=== PATIENT | male | born 1970 | race Caucasian/White ===

== ENCOUNTER 2024-03-08 17:00 | Outpatient (RCR) | payer OTHER, SELFPAY | END 2024-03-13 17:01 | disposition home or self-care (01) | LOC: PT 17:00 | PROVIDERS: Visit Provider Orthopaedic Surgery | DX: M75.21 Bicipital tendinitis, right shoulder (principal); M75.01 Adhesive capsulitis of right shoulder; M13.819 Other specified arthritis, unspecified shoulder; Z98.890 Other specified postprocedural states | CPT/HCPCS: 97014; 97110; 97140; 97163; 97164; 97530; G0283 ==